=== PATIENT | male | born 1985 | race Caucasian/White ===

== ENCOUNTER 2017-01-02 00:34 | Emergency (ER) | payer SELFPAY ==
[~2017-01-02] VITALS: Ht 175.3 cm; Wt 94.4 kg
[~2017-01-02 00:34] MED LIST: AMOXICILLIN500 M1 PO; FLEXERIL10 MG PO; KENALOG,ARISTOC80 GM TP; MEDROL DOSEPAK4 MG PO; MOTRIN800 MG PO; NAPROSYN500 MG PO; NAPROXEN500 MG PO; PERCOCET 5/31 TABLET PO; PREDNISONE10 MG PO; PREDNISONE20 MG PO; ULTRAM50 MG PO; VALIUM5 MG PO
[2017-01-02] MEDS ORDERED: MEDROL DOSEPAK4 MG PO (01:48)
[2017-01-02] MEDS ORDERED: LIDODERM 5% P1 PATCH TD (01:48)
[2017-01-02] MEDS ORDERED: NORCO 5/3251 TABLET PO (01:48)
[2017-01-02 02:07] VITALS: BP 117/81
== END 2017-01-02 02:05 | disposition home or self-care (01) ==
LOC: EME 00:34
DX: M54.5 Low back pain (principal); G89.29 Other chronic pain; F17.200 Nicotine dependence, unspecified, uncomplicated
CPT/HCPCS: 99281; 99284; J7512

== ENCOUNTER 2017-10-07 19:51 | Emergency (ER) | payer SELFPAY ==
[~2017-10-07] VITALS: Ht 175.3 cm; Wt 96.3 kg
[~2017-10-07 19:51] MED LIST changes: +LIDODERM 5% P1 PATCH TD; +NORCO 5/3251 TABLET PO
[2017-10-07] MEDS ORDERED: NORCO 7.5/321 TABLET PO (21:24)
[2017-10-07] MEDS ORDERED: VALIUM5 MG PO (21:24)
[2017-10-07] MEDS ORDERED: MOTRIN800 MG PO (21:24)
[2017-10-07 21:43] VITALS: BP 115/82
== END 2017-10-07 21:44 | disposition home or self-care (01) ==
LOC: EXP 19:51 → EME 19:51 → EXP 21:44
DX: M54.41 Lumbago with sciatica, right side (principal); G89.29 Other chronic pain; M51.37 Other intervertebral disc degeneration, lumbosacral region; F17.200 Nicotine dependence, unspecified, uncomplicated
CPT/HCPCS: 99281; 99283